=== PATIENT | male | born 1980 | race Caucasian/White ===

== ENCOUNTER 2016-09-18 14:45 | Emergency (ER) | payer BC ==
[~2016-09-18 14:45] MED LIST: ADVIL LIQUI-GE200 MG PO
[2016-09-18] MEDS ORDERED: CEPHALEXIN500 M2 PO (16:15)
[2016-09-18] MEDS ORDERED: PERCOCET 325 MG1 TA2 PO (16:15)
== END 2016-09-18 16:30 | disposition home or self-care (01) ==
LOC: ED 14:45
DX: S62.613A Displaced fracture of proximal phalanx of left middle finger, initial encounter for closed fracture (principal); S61.211A Laceration without foreign body of left index finger without damage to nail, initial encounter; W31.89XA Contact with other specified machinery, initial encounter; Y92.018 Other place in single-family (private) house as the place of occurrence of the external cause
CPT/HCPCS: A4550; A4649; J1885